=== PATIENT | male | born 1995 | race Caucasian/White ===

== ENCOUNTER 2021-03-18 17:59 | Observation (INO) | payer BC, SELFPAY ==
--- NOTE | ~2021-03-18 | XR_ITS ---
EXAMINATION: XR chest 1V 03/18/2021 19:11 INDICATION: Transient alteration of awareness PROCEDURE: AP portable chest COMPARISON: No prior studies for comparison FINDINGS: The lungs are clear. The cardiomediastinal silhouette is within normal limits. There are no pleural effusions. There is no pneumothorax suspected. IMPRESSION: 1: NO ACUTE CARDIOPULMONARY DISEASE. Reviewed, dictated and finalized at location A. DENT REPORT CLERK
--- NOTE | ~2021-03-18 | CT_ITS ---
EXAMINATION: CT BRAIN W/O DATE: 03/18/2021 19:17 INDICATION: Confusion. None since. TECHNIQUE: Computed tomography (CT) of the head was performed without intravenous contrast. The dose- length product was 605.33 mGy-cm. Automated exposure control and iterative reconstruction technique were employed. COMPARISON: No prior studies for comparison. FINDINGS: Normal brain parenchymal volume for age. Normal shafer-white differentiation. No acute intrac ranial hemorrhage, infarction, mass or mass effect. No ventriculomegaly or midline shift. Midline sagittal images demonstrate a normal corpus callosum, c raniovertebral junction and sella turcica. Basilar cisterns are patent. Paranasal sinuses and mastoids are pneumatized. No depressed skull fractures. IMPRESSION: 1. No acute intracranial abnormality. Reviewed, dictated and finalized at location A. DYER
--- NOTE | ~2021-03-18 | MR_ITS ---
EXAMINATION: MR brain/brain stem wo con EXAM DATE: 03/19/2021 10:07 INDICATION: Confusion. TECHNIQUE: Magnetic resonance imaging (MRI) of the brain/brain stem obtained without contrast. Sagitt al T1, axial diffusion, gradient echo (T2*), T1, T2, FLAIR sequences obtained. Correlation is made t o head CT from yesterday. FINDINGS: There are no areas of restricted diffusion to suggest acute infarction. There is no acute hemorrhage seen on the T2*, a hemosiderin sensitive sequence. No intraparenchymal brain mass. The ve ntricles are normal in size. There are no extra-axial collections. Flow voids are seen in the cereb ral arteries on the T2-weighted sequences consistent with their expected patency. The orbits are unr emarkable. Soft tissue is unremarkable. IMPRESSION: 1. Unremarkable brain MRI examination. Reviewed, dictated and finalized at location B. ICATION INSPECTOR
[2021-03-18 18:04] VITALS: BP 139/97; PULSE 109; RESP 17; TEMP 36.5; O2SAT 97
--- NOTE | 2021-03-18 18:30 | ECG_ITS ---
Measurements Intervals Rosine Rate: 72 P: 47 UT: 157 QRS: 17 QRSD: 99 T: 29 QT: 378 QTc: 416 Interpretive Statements SINUS RHYTHM MINIMAL Q WAVES- HIGH LATERAL LEADS BORDERLINE ECG Electronically Signed On 03-19-2021 6:05:40 [employer] [place] by Palmer Young D.O.
--- NOTE | 2021-03-18 18:39 | ED.AMS ---
HPI - Altered Mental Status General Chief Complaint: Altered Mental Status Stated Complaint: Altered Time Seen by Provider: 03/18/21 18:22 Source: family and RN notes reviewed Mode of arrival: ambulatory Limitations: altered mental status History of Present Illness HPI narrative: This is a 25 year old male who presents for evaluation of altered mental status. Patient's and father are at bedside to provide history. His states he has been off for 4 days. He has not been sleeping at all, but he has been able to go to work. She states he went to work today and when he got home his behavior was worse. They state the only thing that has changed is he was started on Pepcid and singular 4 days ago. He was started on that medication because he developed hives after starting steroids for COVID. They states he was COVID positive 2-3 weeks so he is out of window for quarantine. He has not taken steroids in about 4 days. Patient today is laughing inappropriately, and he is not making any sense with his conversation. They deny any head injury. They denies similar behavior in the past. It appears he has urinated on himself. They were able to ambulate patient to room from triage. Related Data Home Medications Medication Instructions Recorded Confirmed montelukast [Singulair] 10 mg PO DAILY 03/18/21 paroxetine HCl 30 mg PO DAILY 03/19/21 03/19/21 Allergies Allergy/AdvReac Type Severity Reaction Status Date / Time dexamethasone AdvReac Hives Verified 03/19/21 00:51 Review of Systems Review of Systems: ROS unobtainable: Yes unobtainable due to mental status (he will not answer and questions. ) [facility] Past Medical History Medical History (Updated 03/19/21 @ 07:11 by Juanita Canales MD) Patient denies medical problems Surgical History Surgical History (Updated 03/18/21 @ 18:51 by Juanita Canaels MD) No pertinent past surgical history Family History Family History (Updated 03/19/21 @ 00:38 by Debra Alexandra RN) Other Unknown family medical history Social History Social History (Updated 03/18/21 @ 18:51 by Juanita Canales MD) Smoking status: Never smoker Alcohol intake: current Drinks per week: 1 Substance use: never Spiritual care concerns: No Exam Const: General: alert Other: patient will not answers appropriately, constantly laughing Eyes: Pupils: Equal, round and reactive pupils present EOM: EOMs intact bilaterally Resp: Effort & Inspection: normal respiratory effort and no retractions Auscultation: clear to auscultation bilaterally Cardio: Rate: regular rate Rhythm: regular rhythm Heart sounds: no murmurs GI: GI Palp: Yes Soft to palpation, No Tenderness to palpation present (GI) and No Guarding due to palpation present (GI) Auscultation: normal bowel sounds Skin: General skin exam: normal color Rashes: no rashes Neuro: General: moves all extremities Psych: Appearance: disheveled Affect: Animated affect present and Ecstatic affect present Attitude: Refuses to answer (attititude/behavior) Thought process: Flight of ideas present and Tangential thought process present Insight: Poor insight present (Psych) Course Reevaluation(s) Reevaluation #1: PAtient was given haldol 5 mg IM with ativan 2 mg IM . He is now calm Date: 03/18/21 Time: 19:52 Reevaluation #2: Patient is now able to state name, year and date. He still continues to have some odd speech. He will be admitted for his altered mental status. Date: 03/18/21 Time: 21:45 Consultations Consultation #1: I discussed case with who accepts patient to service with neurology consult. Date: 03/18/21 Time: 22:30 Vital Signs Vital signs: Vital Signs Temperature 97.7 F 03/18/21 18:04 Pulse Rate 109 H 03/18/21 18:04 Respiratory Rate 17 03/18/21 18:04 Blood Pressure 139/97 H 03/18/21 18:04 Pulse Oximetry 97 03/18/21 18:04 Temperature 97.0 F L 03/19/21 0
[2021-03-18] MEDS: LORazepam INJ (*CRX) 2 MG/ML VIAL IM (18:40)
[2021-03-18] MEDS: HALOPERIDOL LACTATE 5 MG/ML VIAL IM (18:40)
[2021-03-18 19:42] VITALS: BP 136/93; PULSE 84; RESP 18; O2SAT 94
[2021-03-18 19:47] LABS: Basophils Percent Auto 0.1 % (0.2-1.2); Eosinophils Percent Auto 0.1 % (0-4.4); Hematocrit 41.8 % (42.0-52.0); Hemoglobin 14.9 g/dL (14.0-18.0); Immature Granulocyte Absolute 0.05 K/mm3 (0.00-0.031); Immature Granulocyte Percent A 0.4 % (0-0.5); Lymphocytes Absolute Auto 1.06 K/mm3 (0.9-3.2); Lymphocytes Percent Auto 7.9 % (18.3-44.2); Mean Corpuscular HGB Conc 35.6 g/dl (32-36); Mean Corpuscular Hemoglobin 31.4 pg (26-34); Mean Platelet Volume 9.1 fl (7.4-10.4); Monocytes Absolute Auto 0.8 K/mm3 (0.1-0.6); Monocytes Percent Auto 5.9 % (2.6-8.5); Neutrophils Absolute Auto 11.4 K/mm3 (1.3-6.7); Neutrophils Percent Auto 85.6 % (45.5-73.1); Platelet Count Result 315 k/mm3 (150-375); Red Blood Count 4.75 M/mm3 (4.6-6.20); Red Cell Distribution Width 12.3 % (11.5-14.5); White Blood Count 13.4 K/mm3 (4.5-10.0)
[2021-03-18 19:57] LABS: INR 1.2
[2021-03-18 19:58] LABS: Ammonia < 9 umol/L (9-30); Ethanol < 10 mg/dL (<10); Partial Thromboplastin Time 27.1 SECONDS (22.3-36.8)
[2021-03-18 20:00] LABS: Alanine Aminotransferase 125 U/L (4-50); Albumin Level 4.4 g/dL (3.5-5.1); Alkaline Phosphatase 85 U/L (38-126); Anion Gap 5 mmol/L (8-16); Aspartate Amino Transferase 52 U/L (17-59); Bilirubin,Total 0.7 mg/dL (0.2-1.3); Blood Urea Nitrogen 12 mg/dL (9-20); Calcium 9.2 mg/dL (8.4-10.2); Carbon Dioxide 27 mmol/L (22-30); Chloride 104 mmol/L (98-107); Creatine Kinase 154 U/L (55-170); Estimated CRCL calculation 140 ml/min; Estimated Glomerular Filt Rate > 60; Glucose 112 mg/dL (65-110); Potassium 3.7 mmol/L (3.4-5.0); Sodium 136 mmol/L (137-145)
--- NOTE | 2021-03-18 21:12 | PC.NURSE ---
[address] sleeping resp even unlabored family at bedside responding to families voice
[2021-03-18 21:26] VITALS: BP 131/97; PULSE 90; RESP 18; O2SAT 94
[2021-03-18] MEDS: SODIUM CHLORIDE 0.9% IV 1,000 ML 999 ML IV CONT (21:26)
--- NOTE | 2021-03-18 21:29 | PC.NURSE ---
wakes to voice will not answer question initially when ask his name states I don't have to tell you . Began to talk to family states name, reoriented to place and time. Became upset felt like he did not get anything done today. Family support tells him he got everything done. Tearful at this time
[2021-03-18 22:12] VITALS: BP 131/97; PULSE 80; RESP 18; O2SAT 98
--- NOTE | 2021-03-18 22:12 | PC.NURSE ---
wakes to voice A&O x 3 family at bedside able to recall that it is mothers birthday
[2021-03-18 22:22] LABS: Add Urine Microscopic? YES; Appearance Urine Clear (Clear); Bilirubin Urine Negative (Negative); Blood Urine Negative (Negative); Color Urine Yellow (Yellow); Glucose Urine UA Negative (Negative); Ketones Urine Trace mg/dL (Negative); Leukocyte Esterase Ur Negative LEU/UL (Negative); Mucus Urine Moderate /lpf; Nitrate Urine Negative (Negative); Protein Urine 1+ mg/dL (Negative); RBC Urine 0-2 /hpf (0-2); Specific Grav Ur 1.029 (1.001-1.035); WBC Urine 0-3 /hpf
[2021-03-18 22:36] LABS: Amphetamine Screen Urine Negative (Negative); Barbiturate Screen Urine Negative (Negative); Benzodiazepines Screen Urine Negative (Negative); Cannabinoid Screen Urine Negative (Negative); Cocaine Screen Urine Negative (Negative); Methadone Screen Urine Negative (Negative); Opiate Screen Urine Negative (Negative); Phencyclidine Screen Urine Negative (Negative)
--- NOTE | 2021-03-18 23:33 | PC.NURSE ---
attempted to call report nurse will call back
[2021-03-18 23:49] VITALS: BP 143/87; PULSE 85; RESP 18; TEMP 36.4; O2SAT 96
[2021-03-19] VITALS (10 sets, daily range): BP systolic 116–129; BP diastolic 65–86; PULSE 64–107; RESP 16–18; TEMP 36.1–37.1; O2SAT 95–98; BMI 27.3
--- NOTE | 2021-03-19 00:10 | ADMGEN ---
This patient, Jesse House, was admitted to Medical Room 343-01. Patient/family oriented to hospital policies and general routines including ID bracelet, bed and alarms, visiting hours, pain management, procedures, bathroom and other care routines, personal items, smoking policy, room service/diet, and visiting hours. Information on how to activate the Rapid Response Team has been discussed. Patient/Family are encouraged to report perceived risks to care and to ask questions if they do not understand what they are told or what they should do.
[2021-03-19] MEDS: SODIUM CHLORIDE 0.9% IV 1,000 ML 125 ML IV CONT ×3 (00:33→19:55)
--- NOTE | 2021-03-19 02:34 | PM.IMHP ---
H&P: HPI History of Present Illness Date/Time: 03/19/21 02:34 Chief Complaint: Altered mental status Narrative: This is a 25 year old male who presents for evaluation of altered mental status. He present to the ER with his family earlier today who is not present prior ministry and most of the history was taken from her medical records and from discussion with the ED physician. He was recently diagnosed with COVID about 2-3 weeks ago. He had been treated with steroid however has not been taking the steroid for about a week. He stopped the steroid as he developed hives and hence she was prescribed Singulair and Pepcid. According to the family patient has been confused and altered since past few days. Today he has been laughing inappropriately and was not making sense this conversation. There is no history of head injury or similar behavior in the past. His also noted he might have a urinated on himself. There is no history of fever. He was given Haldol and Ativan in the ER to calmed him down. 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 By mid day he does not recall what happened and does not remember how he got here. Denies any drug use. He also denies any alcohol use in recent past does not smoke. In the ED evaluation he was afebrile vital were stable. He was noted to have flight of ideas with tangential thought process Poor inside EKG showed sinus rhythm with no acute abnormalities. Head CT was negative. Chest x-ray was negative for any acute cardiopulmonary disease. WBC count is mildly elevated at 13,000 thousand with left shift ammonia level was negative LFTs were mildly elevated ALT urinalysis was negative. Urine drug screen was negative for any illicit drug use. Ethyl alcohol is negative. No prior pertinent medical or surgical history. Review of Systems Review of Systems: - CONSTITUTIONAL: Denies weight loss, fever and chills. - HEENT: Denies changes in vision and hearing - RESPIRATORY: Denies SOB and cough. - CV: Denies palpitations and CP. - GI: Denies abdominal pain, nausea, vomiting and diarrhea. - : Denies dysuria and urinary frequency. - MSK: Denies myalgia and joint pain. - SKIN: Denies rash and pruritus. - NEUROLOGICAL: Denies headache and syncope. - PSYCHIATRIC: Denies recent changes in mood. Denies anxiety and depression. All systems reviewed & are unremarkable except as noted in HPI and below Constitutional: Constitutional: Reports fatigue and Reports weakness Neurologic: Reports weakness Endocrine: Endocrine: Reports fatigue PMFSH Past Medical History Medical History (Updated 03/19/21 @ 03:16 by Barrie Knight MD) Patient denies medical problems Surgical History Surgical History (Updated 03/18/21 @ 18:51 by Juanita Canales MD) No pertinent past surgical history Family History Family History (Updated 03/19/21 @ 00:38 by Debra Alexandra RN) Other Unknown family medical history Social History Social History (Updated 03/18/21 @ 18:51 by Juanita Canales MD) Smoking status: Never smoker Alcohol intake: current Drinks per week: 1 Substance use: never Spiritual care concerns: No Meds Home Medications and Allergies Home Medications Medication Instructions Recorded Confirmed Type montelukast [Singulair] 10 mg PO DAILY 03/18/21 03/19/21 History paroxetine HCl 30 mg PO DAILY 03/19/21 03/19/21 History Allergies Allergy/AdvReac Type Severity Reaction Status Date / Time dexamethasone AdvReac Hives Verified 03/19/21 00:51 Vital Signs Vital Signs - 24 hr 03/18/21 18:04 03/18/21 19:42 03/18/21 21:26 Temperature 97.7 F Pulse Rate 109 H 84 90 Respiratory Rate 17 18 18 Blood Pressure 139/97 H 136/93 H 131/97 H Pulse Oximetry 97 94 94 03/18/21 22:12 03/18/21 23:49 03/19/21 00:00
[2021-03-19 04:24] LABS: Alveolar/Arterial O2 Gradient 23.5 mmHg; Fractional Inspired Oxygen 21 %; HCO3 ABG 25.4 mEq/l (22.0-26.0); Oxygen Content ABG 18.8 %vol (16.0-22.0); Oxygen Saturation ABG 95.8 % (95.0-100.0); Oxyhemoglobin 93.9 % THb (90.0-100.0); PCO2 ABG 40.1 mmHg (35.0-45.0); PO2 ABG 78.2 mmHg (80.0-100.0); PO2 FiO2 Ratio Arterial Blood 3.72 %; Total Hemoglobin 14.2 g/dL (12.0-18.0)
[2021-03-19 04:25] LABS: Device ROOM AIR; Modified Allen's Test Pass; Site Drawn RIGHT RADIAL
[2021-03-19 05:59] LABS: Basophils Percent Auto 0.3 % (0.2-1.2); Eosinophils Percent Auto 0.5 % (0-4.4); Hematocrit 37.8 % (42.0-52.0); Hemoglobin 13.2 g/dL (14.0-18.0); Immature Granulocyte Absolute 0.02 K/mm3 (0.00-0.031); Immature Granulocyte Percent A 0.3 % (0-0.5); Lymphocytes Absolute Auto 1.46 K/mm3 (0.9-3.2); Lymphocytes Percent Auto 23.5 % (18.3-44.2); Mean Corpuscular HGB Conc 34.9 g/dl (32-36); Mean Corpuscular Hemoglobin 30.7 pg (26-34); Mean Corpuscular Volume 87.9 fl (80-100); Mean Platelet Volume 9.2 fl (7.4-10.4); Monocytes Absolute Auto 0.7 K/mm3 (0.1-0.6); Monocytes Percent Auto 11.4 % (2.6-8.5); Platelet Count Result 291 k/mm3 (150-375); Red Cell Distribution Width 12.3 % (11.5-14.5); White Blood Count 6.2 K/mm3 (4.5-10.0)
[2021-03-19 06:10] LABS: Lactic Acid Reflex 0.6 mmol/L (0.7-2.1)
[2021-03-19 06:13] LABS: Alanine Aminotransferase 101 U/L (4-50); Albumin Level 3.6 g/dL (3.5-5.1); Alkaline Phosphatase 66 U/L (38-126); Anion Gap 2 mmol/L (8-16); Aspartate Amino Transferase 40 U/L (17-59); Bilirubin,Total 0.8 mg/dL (0.2-1.3); Blood Urea Nitrogen 9 mg/dL (9-20); Calcium 8.6 mg/dL (8.4-10.2); Carbon Dioxide 30 mmol/L (22-30); Chloride 103 mmol/L (98-107); Estimated CRCL calculation 163 ml/min; Estimated Glomerular Filt Rate > 60; Glucose 102 mg/dL (65-110); Potassium 3.8 mmol/L (3.4-5.0); Sodium 135 mmol/L (137-145)
[2021-03-19 06:14] LABS: Creatine Kinase 216 U/L (55-170)
--- NOTE | 2021-03-19 11:04 | P.NEURO_ITS ---
Neurology EEG Report TEST eeg DIAGNOSIS confusion CONDITION OF RECORDING Awake drowsy and sleep EEG NUMBER [id number] CLINICAL HISTORY patient reported for several hours yesterday he was having visual and auditory hallucination and was very confused. Feels like he is back to normal today EEG DESCRIPTION basic resting occipital frequency consists of large amount of well-organized low to medium voltage 9 to 11 hertz per 2nd alpha admixed with low-voltage 15 to 18 hertz per 2nd beta. Bilateral symmetrical sleep activity seen during sleep. Low-voltage beta activity seen diffusely admixed with waxing and waning posterior alpha rhythm. Photic stimulation not done. Hyperventilation not d one. Non paroxysmal. Nonfocal. Nonlateralizing. IMPRESSION Normal record without evidence of any paroxysmal activity if diagnosis of partial onset epilepsy is considered repeat EEG during wakefulness drowsiness and sleep suggest
[2021-03-19] MEDS: ACETAMINOPHEN 325 MG TABLET 650 MG PO (11:54)
--- NOTE | 2021-03-19 14:17 | WPDNEURCNPN ---
Assessment and Plan Additional Plan history of the change in the mental status, with nonfocal neurological examination, normal EEG, normal MRI of the brain, question change in her symptomatology related to the steroids that medication has been completely stopped, will recheck him in the morning to consider whether we need to have CTA of the brain to rule out the possibility of the aneurysm but he has no evidence of any focal neurological deficit or meningeal irritation right now Consult date: 03/19/21 HPI: Jesse House is a 25 year old male admitted to the hospital for the complaints of change in the mental status reportedly presented to the emergency room with his family he was recently diagnosed with COVID about 3 weeks ago and has been treated with steroid though at present he is not taking steroid and had stopped about a week ago when he was taking steroid he developed hives the suppose prescribe Singulair and Pepcid according the family member patient had been confused over the last few days and has been laughing inappropriately and was not making any sense in the conversation there is no history of recent or remote head trauma and also such behavior in the past he also noted that he might have urinated on himself but there was no history of fever he was given Haldol and Ativan in the emergency room to Janina him down by the time he was seen by the hospital he was is still somewhat confused in the emergency room he was noted the afebrile general physical examination and neurological examination was nonfocal CT scan of the head was negative for the bleed chest x-ray was negative for any space-occupying lesions or pneumonia [place] with [place] [address] ammonia level was normal so as the liver function tests which were mildly elevated and the UA was negative urine drug screen was negative alcohol was negative, patient is a never smoker drinks only 1 drink per week he does take paroxetine 30 mg daily at home Review of Systems Review of Systems: All systems reviewed & are unremarkable except as noted in HPI and below PMFSH Past Medical History Medical History Patient denies medical problems Surgical History Surgical History No pertinent past surgical history Family History Family History Other Unknown family medical history Social History Social History Smoking status: Never smoker Alcohol intake: current Drinks per week: 1 Substance use: never Spiritual care concerns: No Meds Home Medications and Allergies Home Medications Medication Instructions Recorded Confirmed Type paroxetine HCl 30 mg PO DAILY 03/19/21 03/19/21 History Allergies Allergy/AdvReac Type Severity Reaction Status Date / Time dexamethasone AdvReac Hives Verified 03/19/21 00:51 Vital Signs Vital Signs - 24 hr 03/18/21 18:04 03/18/21 19:42 03/18/21 21:26 Temperature 36.5 C Pulse Rate 109 H 84 90 Respiratory Rate 17 18 18 Blood Pressure 139/97 H 136/93 H 131/97 H Pulse Oximetry 97 94 94 03/18/21 22:12 03/18/21 23:49 03/19/21 00:00 Temperature 36.4 C Pulse Rate 80 85 64 Respiratory Rate 18 18 Blood Pressure 131/97 H 143/87 H Pulse Oximetry 98 96 03/19/21 00:28 03/19/21 04:23 03/19/21 07:54 Temperature 36.1 C L 37.1 C Pulse Rate 88 66 75 Respiratory Rate 16 16 Blood Pressure 118/80 116/72 Pulse Oximetry 98 95 03/19/21 08:00 03/19/21 12:00 Temperature Pulse Rate 107 H 77 Respiratory Rate Blood Pressure Pulse Oximetry Exam Const: General: cooperative, healthy appearing, comfortable and no acute distress Nutritional Appearance: average body habitus and well nourished Orientation/consciousness: oriented to person, oriented to place and oriented to time Limitations:
[2021-03-19] MEDS: PARoxetine 10 MG, PARoxetine 20 MG 30 MG PO (14:56)
[2021-03-20] VITALS: PULSE 57
[2021-03-20 04:00] VITALS: PULSE 55
[2021-03-20 06:00] VITALS: BP 120/62; PULSE 57; RESP 18; TEMP 36.3; O2SAT 96
[2021-03-20] MEDS: PARoxetine 10 MG, PARoxetine 20 MG 30 MG PO (07:56)
[2021-03-20] MEDS: ACETAMINOPHEN 325 MG TABLET 650 MG PO (07:56)
[2021-03-20 08:00] VITALS: PULSE 103
[2021-03-20 12:00] VITALS: PULSE 76
[2021-03-20 12:14] LABS: Anion Gap 8 mmol/L (8-16); Blood Urea Nitrogen 11 mg/dL (9-20); Calcium 9.5 mg/dL (8.4-10.2); Carbon Dioxide 26 mmol/L (22-30); Chloride 103 mmol/L (98-107); Creatine Kinase 390 U/L (55-170); Estimated CRCL calculation 129 ml/min; Estimated Glomerular Filt Rate > 60; Glucose 101 mg/dL (65-110); Potassium 4.2 mmol/L (3.4-5.0); Sodium 137 mmol/L (137-145)
--- NOTE | 2021-03-20 13:02 | PM.DS ---
DS: Admitting Diagnosis Discharge Date 03/20/21 Admitting Diagnosis (1) Acute encephalopathy: Code(s): G93.40 - Encephalopathy, unspecified Status: Acute (2) COVID: Code(s): U07.1 - COVID-19 Status: Acute (3) Agitation: Code(s): R45.1 - Restlessness and agitation Status: Acute DS: Discharge Diagnosis Discharge Diagnosis (1) Bipolar I disorder with del: Code(s): F31.10 - Bipolar disorder, current episode manic without psychotic features, unspecified Status: Acute (2) Steroid-induced psychosis, with delusions: Code(s): F19.950 - Other psychoactive substance use, unspecified with psychoactive substance-induced psychotic disorder with delusions Status: Acute (3) Toxic encephalopathy: Code(s): G92.9 - Unspecified toxic encephalopathy Status: Acute (4) Cyclothymic disorder with manic episode: Code(s): F34.0 - Cyclothymic disorder; F30.10 - Manic episode without psychotic symptoms, unspecified Status: Acute DS: Summary Hospital Course Reason for hospitalization: acute encephalopathy Hospital Course: 25-year-old male recently recovering from COVID placed on dexamethasone was noted to be altered at his place of employment. He was transferred to [facility] for further care. Patient states that he did not feel altered at work but he was paranoid. He does have some baseline paranoia and hypomania which is his normal level of functioning. Patient states that he believes that the steroids precipitated a full manic attack. He has not been able to sleep he has been paranoid he has been functioning at a higher level than normal. Initial workup in hospital did not reveal any alternative cause for the acute encephalopathy. Patient symptoms resolved prior to discharge. He is discharged home in stable condition AAOx3 with indications to follow up with his psychiatrist And primary care physician. Status at Discharge Functional status at discharge: independent ambulation Overall status at discharge: patient is back to baseline Time Spent with Patient Time attestation: Total time spent providing and/or coordinating discharge services: Time spent: Greater than 30 minutes Exam Narrative: GENERAL: The patient is well developed, not in acute distress AAOx3 calm/cooperative HEENT: Nonicteric sclerae, EOMI. Conjunctivae appear well perfused. LUNGS: No use of accessory muscles symmetric chest rise no respiratory distress SKIN: No rash, no excessive bruising, petechiae, or purpura. NEUROLOGIC: Cranial nerves II-XII intact, no focal neurological deficits appreciated EXTREMITIES: no edema, cyanosis or clubbing PSYCH: affect and mood congruent slightly elevated but appropriate non tangental DS: Data Data Completed and Pending Labs on day of discharge: Labs from last 24 hours 03/20/21 11:56 Sodium 137 Potassium 4.2 Chloride 103 Carbon Dioxide 26 Anion Gap 8 BUN 11 Creatinine 0.90 Estim Creat Clear Calc 129 Estimated GFR > 60 Glucose 101 Calcium 9.5 Total Creatine Kinase 390 H Discharge Plan Discharge Attending physician on discharge: Laxmi Quiroga Consulting providers: David Aquino Discharging Clinician: Laxmi Quiroga Anticipated Discharge Date/Time: 03/20/21 13:01 Patient Disposition: Home, Self-Care Activity: as tolerated Diet: regular Patient Instructions: Antibiotic Form Stand Alone Forms: General Discharge Information Follow-up/Referrals: David Aquino MD [Physician] - oumou,Ponce Ferreira MD [Primary Care Provider] - Discharge Medications: No Action paroxetine HCl 30 mg tablet 30 mg PO DAILY RF: 0 Date of admission: 03/18/21 22:25 Primary Care Provider: JenniferPonce Admitting Provider: Barrie Knight Attending physician on admission: Barrie Knight Condition: Serious
== END 2021-03-20 13:30 | disposition home or self-care (01) ==
LOC: ANHED 18:39 → ANH3MED 03-19 04:38
PROVIDERS: Admitting Provider Internal Medicine; Emergency Provider General Practice; PCP Internal Medicine; Visit Provider Hospitalist
DX: G93.40 Encephalopathy, unspecified (principal); F19.950 Other psychoactive substance use, unspecified with psychoactive substance-induced psychotic disorder with delusions; F34.0 Cyclothymic disorder; R41.82 Altered mental status, unspecified; R45.1 Restlessness and agitation; D72.829 Elevated white blood cell count, unspecified; Z86.16 Personal history of COVID-19; Z79.899 Other long term (current) drug therapy
CPT/HCPCS: 36415; 36600; 70450; 70551; 71045; 80048; 80053; 80307; 81001; 82140; 82550; 82805; 83605; 84443; 85025; 85610; 85730; 93005; 95816; 96360; 96361; 96372; 99285; A9270; G0378; J1630; J2060; J7030